=== PATIENT | female | born 2000 | race Caucasian/White ===

== ENCOUNTER → 2021-10-11 | Outpatient (CLI) | payer BC, OTHER ==
--- NOTE | 2021-10-11 13:55 | Diagnostic Imaging Report ---
Indication: Positive urine test. There is a single live IUP measuring 6 weeks 1 day gestational age. heart rate was recorded at 110 bpm. No rebecca-gestational sac hemorrhage is detected. Adnexal evaluation demonstrates approximately 3 cm cyst involving the left ovary, perhaps corpus luteum. No free fluid. Impression: Single live IUP 6 weeks 1 day gestational age with estimated of confinement sonographically of 06/05/2022. Dictated by: Dictated on workstation # [id number]
== END ==
LOC: RAD 10:00
PROVIDERS: ATTEND Obstetrics & Gynecology
DX: Z32.01 Encounter for pregnancy test, result positive (principal); Z3A.01 Less than 8 weeks gestation of pregnancy
CPT/HCPCS: 76801; 76817

== ENCOUNTER → 2022-03-15 | Outpatient (CLI) | payer OTHER | LOC: LABNPT 09:27 | PROVIDERS: ATTEND Obstetrics & Gynecology | DX: R80.9 Proteinuria, unspecified (principal) | CPT/HCPCS: 82570; 84156 ==

== ENCOUNTER 2022-05-11 13:47 | Outpatient (CLI) | payer OTHER ==
[~2022-05-11] VITALS: Ht 177.8 cm; Wt 125.9 kg
[2022-05-11] MEDS ORDERED: PREN1COM11 PO (14:12)
[2022-05-11] MEDS ORDERED: ESCI5TAB PO (14:12)
[2022-05-11 14:16] LABS: BASOPHILS % (AUTO) 0 % (0-10); EOSINOPHILS % (AUTO) 0 % (0-10); HEMATOCRIT 31 % (35-52); HEMOGLOBIN 10.8 g/dL (11.5-16.0); LYMPHOCYTES # (AUTO) 2.2 10^3/uL (1.0-4.0); LYMPHOCYTES % (AUTO) 20 % (12-44); MEAN CORPUSCULAR HEMOGLOBIN 31 pg (25-34); MEAN CORPUSCULAR HGB CONC 35 g/dL (32-36); MEAN CORPUSCULAR VOLUME 88 fL (80-99); MEAN PLATELET VOLUME 10.6 fL (9.0-12.2); MONOCYTES # (AUTO) 0.7 10^3/uL (0.0-1.0); MONOCYTES % (AUTO) 6 % (0-12); NEUTROPHILS % (AUTO) 73 % (42-75); PLATELET COUNT 230 10^3/uL (130-400); WHITE BLOOD COUNT 10.9 10^3/uL (4.3-11.0)
[2022-05-11 14:27] LABS: ALBUMIN 3.4 GM/DL (3.2-4.5); POTASSIUM 3.9 MMOL/L (3.6-5.0)
[2022-05-11 14:28] LABS: CALCIUM 8.8 MG/DL (8.5-10.1)
[2022-05-11 14:29] LABS: TOTAL PROTEIN 6.5 GM/DL (6.4-8.2)
[2022-05-11 14:31] LABS: BILIRUBIN,TOTAL 0.1 MG/DL (0.1-1.0)
[2022-05-11 14:33] LABS: CREATININE SERUM 0.66 MG/DL (0.60-1.30)
[2022-05-11 14:36] LABS: URIC ACID 5.3 MG/DL (2.6-7.2)
[2022-05-11] MEDS ORDERED: oxyCODONE/APAP 5/325MG (PERCOCET 5) TABLET PO ONE (15:00)
[2022-05-11] MEDS: D5 LR IV SOLUTION 1,000 ML IV SCH ×2 (16:34→17:51)
[2022-05-11 18:15] LABS: BILIRUBIN,URINE NEGATIVE (NEGATIVE); CLARITY,URINE CLEAR; COLOR,URINE YELLOW; GLUCOSE, URINE (UA) NEGATIVE (NEGATIVE); KETONES,URINE NEGATIVE (NEGATIVE); LEUKOCYTE ESTERASE ,URINE NEGATIVE (NEGATIVE); NITRITE,URINE NEGATIVE (NEGATIVE); PH,URINE 6.5 (5-9); PROTEIN,URINE NEGATIVE (NEGATIVE)
[2022-05-11 18:33] LABS: BACTERIA,URINE FEW /HPF; WBC,URINE RARE /HPF
[2022-05-11 18:34] LABS: CALCIUM OXALATE CRYSTALS,UR LARGE /LPF
[2022-05-11 19:49] VITALS: BP 122/62
[2022-05-11 23:35] VITALS: BP 128/67
[2022-05-12] VITALS: BP 128/67
[2022-05-12] MEDS: D5 LR IV SOLUTION 1,000 ML IV SCH ×2 (00:02→06:41)
[2022-05-12] MEDS ORDERED: ACETAMINOPHEN 500 MG TAB (TYLENOL) ONE (02:05)
[2022-05-12] MEDS ORDERED: ACETAMINOPHEN 500 MG TAB (TYLENOL) PO ONE (02:15)
[2022-05-12 04:30] VITALS: BP 120/69
--- NOTE | 2022-05-12 07:19 | History & Physical ---
History and Physical Date Seen by Provider: May 11, 2022 Time Seen by Provider: 17:00 This is a late entry for H&P for this patient Patient was seen on May 11, 2022 at 1700 this evening. Patient is a 21-year-old multigravid patient who presented at 36 weeks gestation with complaint of nausea vomiting and elevated blood pressure to the 140s to 150s over 90s. She does have a history of preeclampsia with . She was found to be peace although her cervix would not make any changes.She denied rupture membranes but did have some leaking nitrazine was negative.She does have a history of labor and delivery and has been using a progesterone for labor suppression Allergies are active for Adderall and tetracycline Medications are vitaminsAnd progesterone Medical social and surgical histories are per the antepartum record HEENT exam is normal Neck is supple Abdomen is gravid Extremities show no clubbing or cyanosis. There is no Homans' sign. Pelvic exam showed no cervical change per nurse exam monitor showed category 1 tracing with occasional episodes of contractions sometimes every 2 to 3 minutes stretching out to 10 to 14 minutes. Contractions spaced out fairly nicely with hydration Lab work is as follows Laboratory Tests Test 05/11/22 13:50 05/11/22 14:06 Range/Units Urine Color YELLOW Urine Clarity CLEAR Urine pH 6.5 5-9 Urine Specific Vale 1.010 L 1.016-1.022 Urine Protein NEGATIVE NEGATIVE Urine Glucose (UA) NEGATIVE NEGATIVE Urine Ketones NEGATIVE NEGATIVE Urine Nitrite NEGATIVE NEGATIVE Urine Bilirubin NEGATIVE NEGATIVE Urine Urobilinogen 0.2 < = 1.0 MG/DL Urine Leukocyte Esterase NEGATIVE NEGATIVE Urine RBC (Auto) 1+ H NEGATIVE Urine RBC 5-10 H /HPF Urine WBC RARE /HPF Urine Squamous Epithelial Cells 5-10 /HPF Urine Crystals PRESENT H /LPF Urine Calcium Oxalate Crystals LARGE H /LPF Urine Bacteria FEW H /HPF Urine Casts NONE /LPF Urine Mucus NEGATIVE /LPF Urine Culture Indicated YES Urine Creatinine 125 30-125 MG/DL Urine Protein/Creatinine Ratio 0.07 White Blood Count 10.9 4.3-11.0 10^3/uL Red Blood Count 3.53 L 3.80-5.11 10^6/uL Hemoglobin 10.8 L 11.5-16.0 g/dL Hematocrit 31 L 35-52 % Mean Corpuscular Volume 88 80-99 fL Mean Corpuscular Hemoglobin 31 25-34 pg Mean Corpuscular Hemoglobin Concent 35 32-36 g/dL Red Cell Distribution Width 13.2 10.0-14.5 % Platelet Count 230 130-400 10^3/uL Mean Platelet Volume 10.6 9.0-12.2 fL Immature Granulocyte % (Auto) 0 % Neutrophils (%) (Auto) 73 42-75 % Lymphocytes (%) (Auto) 20 12-44 % Monocytes (%) (Auto) 6 0-12 % Eosinophils (%) (Auto) 0 0-10 % Basophils (%) (Auto) 0 0-10 % Neutrophils # (Auto) 8.0 H 1.8-7.8 10^3/uL Lymphocytes # (Auto) 2.2 1.0-4.0 10^3/uL Monocytes # (Auto) 0.7 0.0-1.0 10^3/uL Eosinophils # (Auto) 0.0 0.0-0.3 10^3/uL Basophils # (Auto) 0.0 0.0-0.1 10^3/uL Immature Granulocyte # (Auto) 0.0 0.0-0.1 10^3/uL Sodium Level 136 135-145 MMOL/L Potassium Level 3.9 3.6-5.0 MMOL/L Chloride Level 105 98-107 MMOL/L Carbon Dioxide Level 22 21-32 MMOL/L Anion Gap 9 5-14 MMOL/L Blood Urea Nitrogen 6 L 7-18 MG/DL Creatinine 0.66 0.60-1.30 MG/DL Estimat Glomerular Filtration Rate 126 BUN/Creatinine Ratio 9 Glucose Level 100 70-105 MG/DL Uric Acid 5.3 2.6-7.2 MG/DL Calcium Level 8.8 8.5-10.1 MG/DL Corrected Calcium 9.3 8.5-10.1 MG/DL Total Bilirubin 0.1 0.1-1.0 MG/DL Aspartate Amino Transf (AST/SGOT) 11 5-34 U/L Alanine Aminotransferase (ALT/SGPT) 11 0-55 U/L Alkaline Phosphatase 79 40-136 U/L Lactate Dehydrogenase 151 125-220 U/L Total Protein 6.5 6.4-8.2 GM/DL Albumin 3.4 3.2-4.5 GM/DL Assessment and plan 36-week with PIH and with labor and with history of preecl ampsia Plan is for supportive care hydration and observation for labor. Blood pressures have improved at bedrest we will continue observation and monitoring her blood pressure 36 weeks with labor and PIH Allergies and Home Medications Allergies Coded Allergies: ketorolac (Verified Allergy, Unknown, 05/11/22) tetracycline (Verified Allergy, Unknown, 05/11/22) Patient Home Medication List Home Medication List Reviewed: Yes Escitalopram Oxalate (Lexapro) 5 Mg Tablet, 5 MG PO DAILY, (Reported) Entered as Reported by: KHALIF GRANT on 05/11/221411 Last Action: New Order Cmb#95/Iron/FA/Dha ( + Dha Combo Pack) 28 Mg Iron-800 Mcg-200 Mg Combo..pkg, 1 EACH PO DAILY, (Reported) Entered as Reported by: KHALIF GRANT on 05/11/221411 Last Action: New Order LANDY DENG MD May 12, 2022 07:19
--- NOTE | 2022-05-12 07:21 | Progress Note ---
Standard Progress Note Progress Notes/Assess & Plan Date Seen by a Provider: May 12, 2022 Time Seen by a Provider: 07:19 Progress/Assessment & Plan This patient is without complaint. She has contracted off and on through the night she reports her contractions are less intense. Her nausea has resolved. She indicates that she feels better than she did on arrival. She does occasionally feel contractions but does not feel like this is labor Patient denies rupture membranes or bleeding. Vital Signs Date Time Temp Pulse Resp B/P (MAP) Pulse Ox O2 Delivery O2 Flow Rate FiO2 05/12/22 04:30 36.3 66 18 120/69 (86) Room Air 05/12/22 00:00 80 18 128/67 05/11/22 23:35 36.6 80 18 128/67 (87) 05/11/22 19:49 36.6 94 18 122/62 (82) Vital signs are stable. Patient is afebrile. Blood pressure within normal. The abdomen is benign the fundus is nontender Extremities show no clubbing cyanosis. Pelvic exam per the night nurse showed a cervix that had not changed since admission. Assessment and plan 36 weeks with labor that has resolved patient has PIH and that is improved with bedrest Patient has a history of preeclampsia but there is no evidence of preeclampsia at this time. Plan is for discharge home with follow-up in clinic Final Diagnosis 38-week with labor and PIH LANDY DENG MD May 12, 2022 07:21
== END 2022-05-12 07:17 ==
LOC: WSo 13:47 → LDRP 13:49 → WSo 05-12 07:17
PROVIDERS: ATTEND Obstetrics & Gynecology
DX: O13.3 Gestational [pregnancy-induced] hypertension without significant proteinuria, third trimester (principal); O60.03 Preterm labor without delivery, third trimester; Z3A.36 36 weeks gestation of pregnancy
CPT/HCPCS: 36415; 80053; 81000; 82570; 83615; 84156; 84550; 85025; 87088

== ENCOUNTER 2022-05-24 07:00 | Inpatient (IN) | payer OTHER ==
[2022-05-24] VITALS (37 sets, daily range): BP systolic 100–141; BP diastolic 53–80
[~2022-05-24] VITALS: Ht 177.8 cm; Wt 127.6 kg
[~2022-05-24 07:00] MED LIST: ESCI5TAB PO; PREN1COM11 PO
[2022-05-24] MEDS ORDERED: D5 LR IV SOLUTION 1,000 ML IV ONE (07:38)
[2022-05-24] MEDS ORDERED: OXYTOCIN PRE-MIX DRIP 500 ML IV ONE (07:38)
--- NOTE | 2022-05-24 07:38 | History & Physical ---
History and Physical Date Seen by Provider: May 24, 2022 Time Seen by Provider: 07:36 This patient is a 22-year-old 3 para 2 female who presents with history of PIH. She is admitted now for induction of labor at 38+ weeks gestation. She denies rupture membranes or bleeding. She has occasional contractions. Her GBS culture was negative. Allergies are Toradol and tetracycline Medications are vitamins Medical social and surgical history is all per the antepartum record HEENT exam is normal Neck is supple no lymphadenopathy no thyromegaly Abdomen is gravid soft nontender nondistended Extremities show no clubbing cyanosis. There is no Homans' sign. Pelvic exam is pending Assessment and plan 38-week gestation with history of PIH admitted now for induction of labor. We anticipate vaginal delivery 38 weeks with PA Allergies and Home Medications Allergies Coded Allergies: ketorolac (Verified Allergy, Unknown, 05/11/22) tetracycline (Verified Allergy, Unknown, 05/11/22) Patient Home Medication List Home Medication List Reviewed: Yes Escitalopram Oxalate (Lexapro) 5 Mg Tablet, 5 MG PO DAILY, (Reported) Entered as Reported by: KHALIF GRANT on 05/11/22 141 Cmb#95/Iron/FA/Dha ( + Dha Combo Pack) 28 Mg Iron-800 Mcg-200 Mg Combo..pkg, 1 EACH PO DAILY, (Reported) Entered as Reported by: KHALIF GRANT on 05/11/22 1412 LANDY DENG MD May 24, 2022 07:38
[2022-05-24 07:42] LABS: BASOPHILS % (AUTO) 0 % (0-10); EOSINOPHILS # (AUTO) 0.1 10^3/uL (0.0-0.3); EOSINOPHILS % (AUTO) 1 % (0-10); HEMATOCRIT 34 % (35-52); HEMOGLOBIN 11.5 g/dL (11.5-16.0); LYMPHOCYTES % (AUTO) 25 % (12-44); MEAN CORPUSCULAR HEMOGLOBIN 30 pg (25-34); MEAN CORPUSCULAR HGB CONC 34 g/dL (32-36); MEAN CORPUSCULAR VOLUME 90 fL (80-99); MEAN PLATELET VOLUME 10.9 fL (9.0-12.2); MONOCYTES # (AUTO) 0.7 10^3/uL (0.0-1.0); MONOCYTES % (AUTO) 6 % (0-12); NEUTROPHILS # (AUTO) 7.9 10^3/uL (1.8-7.8); NEUTROPHILS % (AUTO) 68 % (42-75); PLATELET COUNT 248 10^3/uL (130-400); WHITE BLOOD COUNT 11.7 10^3/uL (4.3-11.0)
[2022-05-24] MEDS ORDERED: OXYTOCIN PRE-MIX DRIP 500 ML IV SCH ×2 (07:45→13:45)
[2022-05-24] MEDS ORDERED: LIDOCAINE UROJET 2% GEL 10 ML PKG TOP ONE (07:45)
[2022-05-24] MEDS: D5 LR IV SOLUTION 1,000 ML IV SCH ×2 (07:53→14:13)
[2022-05-24] MEDS ORDERED: fentaNYL 2 mcg/ml BUPIVA 0.125 100 ML ONE (08:01)
[2022-05-24] MEDS ORDERED: OXYC-199 PO (08:35)
[2022-05-24] MEDS ORDERED: DOCU-143 PO (08:35)
--- NOTE | 2022-05-24 08:37 | Discharge Inst-Surgical ---
Discharge Inst-Surgical Depart Medication/Instructions New, Converted or Re-Newed RX: Transmitted to Pharmacy Consults/Follow Up Patient Instructions: As directed Orders & Referrals Follow Up Appt: Call to make follow up appt. for patient in 4 weeks. Activity Per routine post vaginal delivery instructions. Diet as tolerated Patient may shower or tub bathe as desired. Activity Activity as Tolerated: No Diet Discharge Diet: No Restrictions LANDY DENG MD May 24, 2022 08:37
[2022-05-24] MEDS ORDERED: fentaNYL INJ 100 MCG/2 ML AMP ONE (09:00)
[2022-05-24] MEDS ORDERED: LIDOCAINE PF 2% 5 ML (XYLOCAINE) VIAL ONE (09:01)
[2022-05-24] MEDS ORDERED: diphenhydrAMINE 50 MG/ML INJ (BENADRYL) IV PRN (09:45)
[2022-05-24] MEDS ORDERED: fentaNYL 2 mcg/ml BUPIVA 0.125 100 ML EPI SCH (09:45)
[2022-05-24] MEDS ORDERED: LACTATED RINGERS 1,000 ML IV SCH (09:45)
[2022-05-24] MEDS ORDERED: NALOXONE 0.4 MG/ML 1 ML (NARCAN) VIAL IV PRN ×2 (09:45)
[2022-05-24] MEDS ORDERED: ONDANSETRON 4 MG/2 ML (SDV) Z0FRAN IV PRN (09:45)
[2022-05-24] MEDS ORDERED: METOCLOPRAMIDE INJ 10 MG/2 ML (REGLAN) IV PRN (09:45)
[2022-05-24] MEDS ORDERED: LIDOCAINE/EPI 2% 1:200,00 (XYLOCAINE) 10 ML VIAL ONE (10:57)
[2022-05-24] MEDS ORDERED: ONDANSETRON 4 MG/2 ML (SDV) Z0FRAN IVP PRN (13:45)
[2022-05-24] MEDS ORDERED: oxyCODONE/APAP 5/325MG (PERCOCET 5) TABLET PO PRN (13:45)
[2022-05-24] MEDS ORDERED: TETANUS,DIPTH,PERTUSS P/F (BOOSTRIX) 0.5 ML VIAL IM ONE (13:45)
[2022-05-24] MEDS ORDERED: BENZOCAINE/MENTHOL (DERMOPLAST) 56 ML CAN TP PRN (13:45)
[2022-05-24] MEDS: IBUPROFEN 800 MG (MOTRIN) TAB PO SCH ×2 (16:36→21:47)
--- NOTE | 2022-05-24 21:28 | OPERATIVE REPORT ---
DATE OF SERVICE: 05/24/2022 DELIVERY NOTE The patient delivered by term spontaneous vaginal delivery a viable male with Apgars of 9 and 9 at 1 and 5 minutes respectively, weight of 7 pounds 11 ounces, time of 13:02 and a cord blood pH that is pending. The infant was delivered over an intact perineum under epidural analgesia. A single nuchal cord was easily released. The was bulb suctioned on completion of delivery. Umbilical cord was doubly clamped, the father cut the cord, the baby was passed to mom's abdomen. Cord bloods were obtained and the placenta delivered spontaneously Rogers. It was normal with a 3-vessel cord. The cervix, vagina, rectum, and perineum were examined and found intact. Sponge and needle counts were correct on completion of the delivery. Blood loss was around 150 mL. The patient tolerated the delivery well and remained in the LDR for recovery. The baby remained with the mom. Job ID: [id number] DocumentID: [id number] Dictated Date: 05/24/2022 14:17:27 Legal Entity Controller Date: 05/24/2022 21:28:51 Dictated By: LANDY DENG MD
[2022-05-24] MEDS: DOCUSATE SODIUM 100 MG (COLACE) CAP PO SCH (21:46)
[2022-05-25 04:54] VITALS: BP 131/76
[2022-05-25] MEDS: IBUPROFEN 800 MG (MOTRIN) TAB PO SCH ×3 (04:54→15:48)
--- NOTE | 2022-05-25 07:58 | Progress Note ---
Standard Progress Note Progress Notes/Assess & Plan Date Seen by a Provider: May 25, 2022 Time Seen by a Provider: 07:57 Progress/Assessment & Plan This patient is without complaint. She is ambulating, voiding, tolerating oral intake well and has good pain control. She is requesting discharge home. Vital Signs Date Time Temp Pulse Resp B/P (MAP) Pulse Ox O2 Delivery O2 Flow Rate FiO2 05/25/22 04:54 36.6 80 18 131/76 (94) 98 Room Air 05/24/22 23:55 36.2 86 18 138/72 (94) 97 Room Air 05/24/22 20:10 35.6 70 18 126/74 (91) 98 Room Air 05/24/22 15:00 75 18 126/66 (86) Room Air 05/24/22 14:38 89 18 122/59 (80) Room Air 05/24/22 14:10 93 18 128/68 (88) Room Air 05/24/22 13:58 90 18 128/68 (88) Room Air 05/24/22 13:55 70 18 127/68 (87) Room Air 05/24/22 13:40 70 18 126/65 (85) Room Air 05/24/22 13:35 83 18 128/68 (88) Room Air 05/24/22 13:25 36.2 80 18 133/70 (91) Room Air 05/24/22 13:10 81 18 136/59 (84) Room Air 05/24/22 12:45 90 18 141/69 (93) Room Air 05/24/22 12:30 80 18 131/78 (95) Room Air 05/24/22 12:15 68 18 136/80 (98) Room Air 05/24/22 12:00 68 18 122/69 (86) 100 Room Air 05/24/22 11:45 72 16 112/66 (81) 100 Room Air 05/24/22 11:30 69 16 112/64 (80) 100 Room Air 05/24/22 11:15 65 18 115/61 (79) 100 Room Air 05/24/22 11:00 36.5 69 18 118/62 (80) 100 Room Air 05/24/22 10:45 72 18 125/63 (83) 100 Room Air 05/24/22 10:33 73 18 123/63 (83) 100 Room Air 05/24/22 10:23 72 18 116/64 (81) 100 Room Air 05/24/22 10:13 80 18 105/60 (75) 100 Room Air 05/24/22 10:07 100 18 105/57 (73) 99 Room Air 05/24/22 10:03 79 18 104/53 (70) 99 Room Air 05/24/22 10:00 76 18 107/56 (73) 99 Room Air 05/24/22 09:41 104 18 126/60 (82) 99 Room Air 05/24/22 09:38 36.4 96 16 111/57 (75) 99 Room Air 05/24/22 09:35 88 16 105/58 (74) 99 Room Air 05/24/22 09:32 98 18 103/55 (71) 99 Room Air 05/24/22 09:25 85 18 100/55 (70) 100 Room Air 05/24/22 09:22 90 18 119/66 (83) 100 Room Air 05/24/22 09:19 81 18 115/61 (79) 100 Room Air 05/24/22 09:16 88 18 114/60 (78) 100 Room Air 05/24/22 09:13 79 18 112/55 (74) 100 Room Air 05/24/22 09:08 72 18 112/58 (76) 100 Room Air I & O 05/25/22 07:00 Intake Total 2500 ml Balance 2500 ml Vital signs are stable. Patient is afebrile. Fundus is firm below the umbilicus and nontender. Extremities show no clubbing or cyanosis. There is no Homans' sign. Assessment and plan Post day #1 status post term spontaneous vaginal delivery doing well. Plan is for discharge home today or tomorrow as patient prefers with follow-up in clinic Final Diagnosis 38-week spontaneous vaginal delivery LANDY DENG MD May 25, 2022 07:58
[2022-05-25] MEDS: DOCUSATE SODIUM 100 MG (COLACE) CAP PO SCH (09:07)
[2022-05-25 09:10] VITALS: BP 138/76
--- NOTE | 2022-05-25 14:31 | Anesthesia-Regional Post-Op ---
Regional Patient Condition Mental Status: Alert, Oriented x3 Circulation: Same as Pre-Op Headache: Absent Sensation: Full Recovery Motor Block: Absent Post Op Complications Complications None Follow Up Care/Instructions Patient Instructions None needed. Anesthesia/Patient Condition Patient is doing well, no complaints, stable vital signs, no apparent adverse anesthesia problems. No complications reported per nursing. BRIGITTE MADERA DO May 25, 2022 14:31
--- NOTE | 2022-05-27 15:20 | OPERATIVE REPORT ---
DATE OF SERVICE: 05/24/2022 ADDENDUM NOTE The patient delivered a viable female . Job ID: [id number] DocumentID: [id number] Dictated Date: 05/27/2022 10:15:55 Cloth Shrinking Tester Date: 05/27/2022 15:18:43 Dictated By: LANDY DENG MD
== END 2022-05-25 17:40 | disposition home or self-care (01) | DRG 807 ==
LOC: LDRP 07:17
PROVIDERS: ADMIT Obstetrics & Gynecology; ATTEND Obstetrics & Gynecology
PROC: 10E0XZZ Delivery of Products of Conception, External Approach (ICD-10-PCS; principal; 2022-05-24)
DX: O69.81X0 Labor and delivery complicated by cord around neck, without compression, not applicable or unspecified (principal); Z37.0 Single live birth; Z3A.38 38 weeks gestation of pregnancy
CPT/HCPCS: 36415; 83033; 85025; 86850; 86900; 86901